=== PATIENT | male | born 1995 | race Caucasian/White ===

== ENCOUNTER 2019-09-02 18:13 | Emergency (ER) | payer MEDICAID ==
[~2019-09-02] VITALS: Ht 180.3 cm; Wt 89.4 kg
[2019-09-02] MEDS ORDERED: TYLENOL (18:42)
[2019-09-02] MEDS ORDERED: ADVIL (18:42)
[2019-09-02] MEDS ORDERED: KETOROLAC TROMETHAMINE 30 MG INJ IM ONE (19:45)
[2019-09-02] MEDS ORDERED: KETOROLAC TROMETHAMINE 30 MG INJ ONE (19:45)
[2019-09-02] MEDS ORDERED: HYDROCODONE/APAP 10-325 MG TABLET PO ONE (19:45)
[2019-09-02] MEDS ORDERED: HYDROCODONE/APAP 10-325 MG TABLET ONE (19:46)
--- NOTE | 2019-09-02 19:55 | NUR ---
Dr. Sanz speaking with Dr. Quiroga of Neurosurgery.
--- NOTE | 2019-09-02 20:13 | NUR ---
Patient discharged to home in stable conditon with family taking patient home. Written and verbal after care instructions given. Patient verbalizes understanding of instructions. Walked out of Er with no distress noted.
[2019-09-02 20:14] VITALS: BP 118/78
== END 2019-09-02 20:15 | disposition home or self-care (01) ==
LOC: ER 18:13
DX: G89.29 Other chronic pain (principal); M54.5 Low back pain; Z79.899 Other long term (current) drug therapy
CPT/HCPCS: 96372; 99283; J1885; A4663

== ENCOUNTER 2023-01-01 22:51 | Emergency (ER) | payer SELFPAY ==
[~2023-01-01] VITALS: Ht 180.3 cm; Wt 78.0 kg
[~2023-01-01 22:51] MED LIST: ADVIL; TYLENOL
[2023-01-02] MEDS ORDERED: KETOROLAC TROMETHAMINE 60 MG INJ IM ONE ×2 (00:45→00:55)
[2023-01-02] MEDS ORDERED: HYDROMORPHONE 1 MG/1 ML DISP.SYRIN IM ONE (00:45)
[2023-01-02] MEDS ORDERED: ONDANSETRON ODT 4 MG TAB.RAPDIS SL ONE (00:45)
[2023-01-02] MEDS ORDERED: HYDR-3980 PO (00:48)
[2023-01-02] MEDS ORDERED: ONDANSETRON ODT 4 MG TAB.RAPDIS ONE (00:55)
[2023-01-02] MEDS ORDERED: HYDROMORPHONE 2 MG/1 ML DISP.SYRIN ONE (00:55)
--- NOTE | 2023-01-02 01:14 | NUR ---
Patient discharged to home in stable condition. A/O x 4, NAD noted. Ambulatory with a steady gait. All belongigns with patient. Written and verbal after care instructions given. Patient verbalizes understanding of instructions. Stressed follow up or return to ER for worsening s/s.
== END 2023-01-02 01:15 | disposition home or self-care (01) ==
LOC: ER 22:51
DX: M54.50 Low back pain, unspecified (principal); F17.210 Nicotine dependence, cigarettes, uncomplicated; Z79.899 Other long term (current) drug therapy
CPT/HCPCS: 99284; 96372 ×2; J1885; J1170; A4663; Q0162